=== PATIENT | male | born 1985 ===

== ENCOUNTER 2019-06-05 05:00 | Day surgery (SDC) | payer OTHER ==
[~2019-06-05 05:00] MED LIST: LIPITOR40 MG PO; LOTREL 5-20 MG1 CAP PO
[2019-06-05] MEDS ORDERED: PERCOCET 5-3251 EACH PO (09:03)
[2019-06-05] MEDS ORDERED: RECTICARE30 GM TOP (09:04)
== END 2019-06-05 12:15 | disposition home or self-care (01) ==
LOC: CIR.AMB 05:00
DX: K60.1 Chronic anal fissure (principal); K60.3 Anal fistula